=== PATIENT | female | born 1940 | race American Indian/Alaskan Native ===

== ENCOUNTER 2018-05-25 12:27 | Emergency (ER) | payer MEDICARE, MEDICAID ==
[2018-05-25] MEDS ORDERED: Sodium Chloride 0.9% 1,000 ML IV ONE (12:45)
--- NOTE | 2018-05-25 12:45 | EDM.PDOC ---
ED HPI GENERAL MEDICAL PROBLEM - General Chief Complaint: Lower Extremity Injury/Pain Stated Complaint: LEG PAIN Time Seen by Provider: 05/25/18 12:37 Source of Information: Reports: Patient History Limitations: Reports: No Limitations - History of Present Illness INITIAL COMMENTS - FREE TEXT/NARRATIVE: HISTORY AND PHYSICAL: History of present illness: Patient is a 78-year-old female who presents to the emergency room with complaints of bilateral muscle cramping to her lower extremities. She states this has been intermittent over the past one year but worse over the past 3 days. The muscle cramping is in the medial thigh with occasional radiation into the groin or calf. She states she has been using topical lidocaine patches and gentle heat to help the cramping. She denies any fever, chills, chest pain, shortness of breath or cough. Denies any GI or symptoms. She has been eating and drinking appropriately. She is fully ambulatory without any weakness or deficits. Patient is type II diabetic. She does use Flexeril and Robaxin for her muscle cramps routinely some relief. Review of systems: As per history of present illness and below otherwise all systems reviewed and negative. Past medical history: As per history of present illness and as reviewed below otherwise noncontributory. Surgical history: As per history of present illness and as reviewed below otherwise noncontributory. Social history: See social history for further information Family history: As per history of present illness and as reviewed below otherwise noncontributory. Physical exam: General: Well-developed and well-nourished 78-year-old female. Alert and oriented. Nontoxic appearing and in no acute distress. HEENT: Atraumatic, normocephalic, pupils equal and reactive bilaterally, negative for conjunctival pallor or scleral icterus, mucous membranes moist, TMs normal bilaterally, throat clear, neck supple, nontender, trachea midline. No drooling or trismus noted. No meningeal signs. No hot potato voice noted. Lungs: Clear to auscultation, breath sounds equal bilaterally, chest nontender. Heart: S1S2, regular rate and rhythm without overt murmur Abdomen: Soft, nondistended, nontender. Negative for masses or hepatosplenomegaly. Negative for costovertebral tenderness. Pelvis: Stable nontender. Genitourinary: Deferred. Rectal: Deferred. Skin: Intact, warm, dry. No lesions or rashes noted. Extremities: Atraumatic, moves all extremities per self without difficulty or deficits, negative for cords or calf pain. Neurovascular unremarkable. Neuro: Awake, alert, oriented. Cranial nerves II through XII unremarkable. Cerebellum unremarkable. Motor and sensory unremarkable throughout. Exam nonfocal. Notes: The cramping she is describing is not localized to one area and states that it is frequently moving throughout both of her legs. She states she does not have a primary care provider and has not been evaluated in over a year. We discussed the need for appropriate follow-up and will give her information for provider she can see once evaluation is completed today. Diagnostics: CBC, CMP, magnesium Therapeutics: IV fluids Prescription: Tramadol (#15) Impression: Muscle Cramps, bilateral lower extremities Plan: 1. Lab work is normal. Results are attached to your discharge packet. Please take your home medications as directed for your pain. Pick one of the medications, do not combine the medications as we discussed. 2. Gentle heat and stretch. 3. Follow up with your primary care provider in the next 1-2 days. Return to the ED as needed as discussed. Definitive disposition and diagnosis as appropriate pending reevaluation and review of above. Bilateral Leg Pain Score (Numeric/FACES): 8 - Related Data Allergies Allergy/AdvReac Type Severity Reaction Status Date / Time No Known Allergies Allergy Verified 05/25/18 12:44 Home Meds: Home Meds Cyclobenzaprine HCl 10 mg PO TID 05/25/18 [History] Methocarbamol [Robaxin-750] 750 mg PO BID 05/25/18 [History] Saxagliptin HCl [Onglyza] 5 mg PO DAILY 05/25/18 [History] metFORMIN [Glucophage] 1,000 mg PO DAILY 05/25/18 [History] Review of Systems - Review of Systems Review Of Systems: ROS reveals no pertinent complaints other than HPI. ED EXAM, GENERAL - Physical Exam Exam: See Below (See dictation) Course - Vital Signs Last Recorded V/S: Last Vital Signs Temp 96.5 F 05/25/18 12:42 Pulse 78 05/25/18 12:42 Resp 18 05/25/18 12:42 BP 148/59 H 05/25/18 12:42 Pulse Ox 95 05/25/18 12:42 - Orders/Labs/Meds Labs: Laboratory Tests 05/25/18 05/25/18 Range/Units 13:00 13:00 WBC 6.77 (4.0-11.0) K/uL RBC 4.42 (4.30-5.90) M/uL Hgb 14.1 (12.0-16.0) g/dL Hct 40.1 (36.0-46.0) % MCV 90.7 (80.0-98.0) fL MCH 31.9 (27.0-32.0) pg MCHC 35.2 (31.0-37.0) g/dL RDW Std Deviation 44.6 (28.0-62.0) fl RDW Coeff of Haile 14 (11.0-15.0) % Plt Count 160 (150-400) K/uL MPV 9.80 (7.40-12.00) fL Neut % (Auto) 63.1 (48.0-80.0) % Lymph % (Auto) 25.8 (16.0-40.0) % Shelby % (Auto) 5.2 (0.0-15.0) % Eos % (Auto) 5.6 (0.0-7.0) % Baso % (Auto) 0.3 (0.0-1.5) % Neut # (Auto) 4.3 (1.4-5.7) K/uL Lymph # (Auto) 1.8 (0.6-2.4) K/uL Shelby # (Auto) 0.4 (0.0-0.8) K/uL Eos # (Auto) 0.4 (0.0-0.7) K/uL Baso # (Auto) 0.0 (0.0-0.1) K/uL Nucleated RBC % 0.0 /100WBC Nucleated RBCs # 0 K/uL Sodium 141 (136-145) mmol/L Potassium 4.2 (3.5-5.1) mmol/L Chloride 105 (98-107) mmol/L Carbon Dioxide 27.7 (21.0-32.0) mmol/L BUN 12 (7.0-18.0) mg/dL Creatinine 0.8 (0.6-1.0) mg/dL Est Cr Clr Drug Dosing 42.97 mL/min Estimated GFR (MDRD) > 60.0 ml/min Glucose 203 H (74-106) mg/dL Calcium 9.2 (8.5-10.1) mg/dL Magnesium 1.8 (1.8-2.4) mg/dL Total Bilirubin 0.9 (0.2-1.0) mg/dL AST 51 H (15-37) IU/L ALT 38 (14-63) IU/L Alkaline Phosphatase 65 (46-116) U/L Total Protein 7.8 (6.4-8.2) g/dL Albumin 3.0 L (3.4-5.0) g/dL Globulin 4.8 H (2.6-4.0) g/dL Albumin/Globulin Ratio 0.6 L (0.9-1.6) Meds: Medications Discontinued Medications Generic Name Dose Route Start Last Admin Trade Name Freq PRN Reason Stop Dose Admin Sodium Chloride 1,000 mls @ 999 mls/hr 05/25/18 12:45 05/25/18 13:00 Normal Saline IV 05/25/18 13:45 250 mls/hr STAT ONE Administration Morphine Sulfate 2 mg 05/25/18 13:20 05/25/18 13:30 Morphine IVPUSH 05/25/18 13:21 2 mg ONETIME ONE Administration Departure - Departure Time of Disposition: 13:51 Disposition: Home, Self-Care 01 Clinical Impression: Muscle cramps - Discharge Information Instructions: Muscle Cramps and Spasms, [id number] Referrals: PCP,None [Primary Care Provider] - Forms: ED Department Discharge Additional Instructions: The following information is given to patients seen in the emergency department who are being discharged to home. This information is to outline your options for follow-up care. We provide all patients seen in our emergency department with a follow-up referral. The need for follow-up, as well as the timing and circumstances, are variable depending upon the specifics of your emergency department visit. If you don't have a primary care physician on staff, we will provide you with a referral. We always advise you to contact your personal physician following an emergency department visit to inform them of the circumstance of the visit and for follow-up with them and/or the need for any referrals to a consulting specialist. The emergency department will also refer you to a specialist when appropriate. This referral assures that you have the opportunity for follow-up care with a specialist. All of these measure are taken in an effort to provide you with optimal care, which includes your follow-up. Under all circumstances we always encourage you to contact your private physician who remains a resource for coordinating your care. When calling for follow-up care, please make the office aware that this follow-up is from your recent emergency room visit. If for any reason you are refused follow-up, please contact the [facility] Emergency Department at and asked to speak to the emergency department charge nurse. [facility] [address] [place] [id number] [facility] [address] [place] [id number] 1. Lab work is normal. Results are attached to your discharge packet. Please take your home medications as directed for your pain. Pick one of the medications, do not combine the medications as we discussed. 2. Gentle heat and stretch. 3. Follow up with your primary care provider in the next 1-2 days. Return to the ED as needed as discussed.
[2018-05-25] MEDS ORDERED: Morphine 2 MG/ML Syringe IVPUSH ONE (13:20)
[2018-05-25 13:34] LABS: CHLORIDE,CL 105 mmol/L (98-107); SODIUM,NA 141 mmol/L (136-145)
== END 2018-05-25 14:15 | disposition home or self-care (01) ==
LOC: MW.ED 12:27
DX: R25.2 Cramp and spasm (principal); M79.605 Pain in left leg; M79.604 Pain in right leg; Z79.899 Other long term (current) drug therapy
CPT/HCPCS: 36415; 80053; 83735; 85025; 96361; 96374; 99283-25; J2270; J7040